=== PATIENT | male | born 1985 | race Caucasian/White ===

== ENCOUNTER 2020-11-17 19:13 | Emergency (ER) | payer BC, SELFPAY ==
--- NOTE | ~2020-11-17 | XR_ITS ---
EXAMINATION: XR FOOT, RIGHT CLINICAL INFORMATION: Pain dorsal and lateral aspects of the right foot COMPARISON: None TECHNIQUE: AP, lateral, and oblique views of the right foot. FINDINGS: There is soft tissue swelling seen about the fifth metatarsophalangeal joint and proximal phalanx without bony abnormality appreciated. No erosive changes seen. No gas within the soft tissues. Joint spaces are maintained. XR/XR foot RT min 3V IMPRESSION: No significant bony abnormality of the right foot identified. Soft tissue swelling about the fifth metatarsal phalangeal joint.
[2020-11-17 19:45] VITALS: BP 150/93; PULSE 70; RESP 16; TEMP 37; O2SAT 98; BMI 31.0
--- NOTE | 2020-11-17 21:42 | ED.EXTPRO ---
HPI - Extremity Problem General Chief complaint: Extremity Problem Stated complaint: ankle swelling Time Seen by Provider: 11/17/20 21:31 Source: patient Mode of arrival: ambulatory Limitations: no limitations History of Present Illness HPI Narrative: Patient comes to the emergency room complaining of right ankle swelling. Patient states it started this morning. Patient went to sleep last night without any discomfort, this morning he woke up with ankle swelling, dorsum of foot pain, states he is able to bear weight but is uncomfortable to do so. Therefore, he has been using crutches all day. Patient denies any trauma. Related Data Previous Rx's Medication Instructions Recorded diclofenac sodium 1 % topical gel 4 g TOPICAL QID #100 g 11/17/20 (Arthritis Pain (diclofenac)) Allergies Allergy/AdvReac Type Severity Reaction Status Date / Time No Known Allergies Allergy Verified 11/17/20 19:49 Review of Systems Review of Systems: Constitutional : No Weight loss, No Fever, No Chills, No Night Sweats, No Fatigue, No Malaise ENT/Mouth : No Hearing loss, No Ear Pain, No Nasal Congestion, No Sinus Pain, No Hoarseness, No sore throat, No Rhinorrhea, No Swallowing Difficulty Eyes: No Eye Pain, No Swelling, No Redness, No Foreign Body, No Discharge, No Vision Changes Cardiovascular : No Chest Pain, No SOB, No Dyspnea on Exertion, No Orthopnea, No Edema, No Palpitations Respiratory : No Cough, No Sputum, No Wheezing, No Smoke Exposure, No Dyspnea Gastrointestinal : No Nausea, No Vomiting, No Diarrhea, No Constipation, No abdominal Pain, No Hematochezia, No Melena Genitourinary : no irregular bleeding, No Dysuria, No Urinary Frequency, No Hematuria, No Urinary Incontinence, No Urgency, No Flank Pain, No Urinary Flow Changes, No Hesitancy Musculoskeletal : Right ankle pain and swelling on the dorsum of the foot and lateral aspect. No Myalgias, No Joint Swelling Skin : No Skin Lesions, No rash Neuro : No Weakness, No Numbness, No Paresthesias, No Loss of Consciousness, No Dizziness, No Headache Psych : No Anxiety/Panic, No Depression, No SI/HI/AH/VH, No Social Issues, Heme/Lymph: No Bruising, No Bleeding,No Lymphadenopathy Endocrine : No Polyuria, No Polydipsia, No Temperature Intolerance PMFSH Past Medical History Surgical History History of hernia surgery Social History Social History Advance Directives: No Physical Exam Vital Signs: Vital Signs: Last Vital Signs Temp 98.6 F 11/17/20 19:45 Pulse 70 11/17/20 19:45 Resp 16 11/17/20 19:45 BP 150/93 H 11/17/20 19:45 Pulse Ox 98 11/17/20 19:45 Body Mass Index 31.0 Const: Other: Appearance: Alert. Oriented X3. No acute distress. Eyes: Pupils equal, round and reactive to light. ENT: Pharynx normal. Neck: Normal inspection. Neck supple. No lymph nodes noted. No crepitus CVS: Normal heart rate and rhythm. Pulses normal. Normal S1 and S2 Respiratory: No respiratory distress. Breath sounds normal. No Wheezing. No rales Abdomen: Soft and nontender. No rigidity. No distention. good BS x4 Skin: Skin warm and dry. Normal skin color. Normal skin turgor. Extremities: No lower extremity edema. Mild swelling around the dorsum of the right ankle, minimally uncomfortable to palpation, no joint effusion suspected, no erythema, no additional warmth, patient able to flex and extend the ankle with no pain, no pain to palpation over the lateral aspect of the foot, sensation intact Neuro: Oriented X 3. No motor deficit. No sensory deficit. Moving all extermities. No slurred speech. Course Course Course Narrative: I discussed the x-rays with the patient, the findings. This time, gout is not suspected. Patient has no erythema, no warmth, no ankle pain in the actual joint. Septic joint is not suspected either. Patient will take around the clock ibuprofen for the next couple days, eyes the ankle for 15 minutes every 2 hours while awake. If this does not help, he will likely need an MRI of the foot. Also discussed with the patient that if he develops any fever chills, redness, new symptoms, he needs to return to the emergency room. MDM - Extremity (Nontraumatic) Imaging Data Right foot x-ray: Radiologist's impression: FINDINGS: There is soft tissue swelling seen about the fifth metatarsophalangeal joint and proximal phalanx without bony abnormality appreciated. No erosive changes seen. No gas within the soft tissues. Joint spaces are maintained.? XR/XR foot RT min 3V IMPRESSION: No significant bony abnormality of the right foot identified. Soft tissue swelling about the fifth metatarsal phalangeal joint. Discharge Plan Discharge Clinical Impression: Acute pain of right foot Patient Disposition: Home, Self-Care Instructions: Metatarsalgia (DC) Additional Instructions: Please follow-up with your primary care physician tomorrow. If you have any worsening or new symptoms, please return to the emergency room or call 911 Prescriptions: New diclofenac sodium [Arthritis Pain (diclofenac)] 1 % gel 4 g topical QID Qty: 100 RF: 0
== END 2020-11-17 22:55 | disposition home or self-care (01) ==
PROVIDERS: Emergency Provider Emergency Medicine
DX: M79.671 Pain in right foot (principal); M79.89 Other specified soft tissue disorders
CPT/HCPCS: 73630; 99283